=== PATIENT | female | born 2005 | race Caucasian/White ===

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

== ENCOUNTER 2024-02-28 18:58 | Emergency (ER) | payer SELFPAY ==
[~2024-02-28] VITALS: Ht 154.9 cm; Wt 70.5 kg
[~2024-02-28 18:58] MED LIST changes: +CEFTIN500 MG PO; +ZITHROMAX Z PA250 MG PO
[2024-02-28 23:05] VITALS: BP 113/74; PULSE 79; TEMP 98.6
== END 2024-02-28 23:06 | disposition home or self-care (01) ==
LOC: COL.ER 18:58
DX: T14.8XXA Other injury of unspecified body region, initial encounter (principal); V89.2XXA Person injured in unspecified motor-vehicle accident, traffic, initial encounter; Y92.410 Unspecified street and highway as the place of occurrence of the external cause